=== PATIENT | female | born 1990 | race African-American/Black ===

== ENCOUNTER 2021-04-15 16:23 | Emergency (ER) | payer OTHER, MEDICAID ==
[~2021-04-15] VITALS: Ht 157.5 cm; Wt 86.2 kg
[~2021-04-15 16:23] MED LIST: BACTRIM DS TAB1 EAC1 PO; BACTRIM DS TAB1 EACH PO; CEPACOL SORE T1 EAC8 PO; CLEOCIN HCL150 MG PO; COLACE100 MG PO; FLEXERIL PO; HYDROCODONE-AP1 EAC6 PO; KEFLEX500 MG PO; MOBIC7.5 MG PO; NAPROSYN500 MG PO; NORCO 5-325 TA1 EACH PO; PENICILLIN V P500 MG PO; PENICILLIN VK500 M1 PO; PROMETH-CODEIN 65 ML PO; REGLAN 10 MG TA10 MG PO; SENNA8.6 MG PO; TRAMADOL 50 MG50 MG PO; ULTRAM 50MG TAB50 MG PO
[2021-04-15 16:30] VITALS: BP 132/87
[2021-04-15 17:05] LABS: INFLUENZA A ANTIGEN Negative (Negative); INFLUENZA B ANTIGEN Negative (Negative)
[2021-04-15] MEDS ORDERED: AUGMENTIN 875-1 EACH PO (17:18)
[2021-04-15] MEDS ORDERED: PERIDEX 0.12%473 M1 SWISH&SPIT (17:20)
== END 2021-04-15 17:27 | disposition home or self-care (01) ==
LOC: M.ERS 16:23
PROVIDERS: Physician Assistant
DX: K04.7 Periapical abscess without sinus (principal); I10 Essential (primary) hypertension; F17.210 Nicotine dependence, cigarettes, uncomplicated; Z98.890 Other specified postprocedural states; Z88.5 Allergy status to narcotic agent; Z88.8 Allergy status to other drugs, medicaments and biological substances